=== PATIENT | male | born 1975 | race Caucasian/White ===

== ENCOUNTER 2023-03-18 19:43 | Emergency (ER) | payer OTHER ==
[~2023-03-18] VITALS: Ht 167.6 cm; Wt 90.7 kg
[2023-03-18 19:50] VITALS: BP 141/95; PULSE 98; RESP 20; O2SAT 100
== END 2023-03-19 04:00 | disposition left against medical advice (07) ==
LOC: ER 19:43 → EDBD 19:43 → ER 03-19 04:00
DX: R51.9 Headache, unspecified (principal); M79.602 Pain in left arm; Z53.29 Procedure and treatment not carried out because of patient's decision for other reasons